=== PATIENT | female | born 1965 | race Asian ===

== ENCOUNTER 2018-09-24 13:15 | Day surgery (SDC) | payer OTHER ==
[~2018-09-24] VITALS: Ht 154.9 cm; Wt 56.4 kg
[2018-09-24] MEDS ORDERED: SIMVASTATIN (13:47)
[2018-09-24] MEDS ORDERED: VENLAFAXINE HCL (13:47)
[2018-09-24] MEDS ORDERED: BENAZEPRIL (13:47)
[2018-09-24] MEDS ORDERED: VITAMINS (13:47)
[2018-09-24 13:49] VITALS: Ht 154.9 cm; Wt 56.4 kg
[2018-09-24 14:59] VITALS: BP 128/84; PULSE 78; RESP 18
[2018-09-24] MEDS ORDERED: FENTAnyl 50 MCG/ML VIAL ONE (16:52)
[2018-09-24] MEDS ORDERED: MIDAZOLAM 1 MG/ML 2 ML INJ ONE ×2 (16:52)
[2018-09-24 16:56] VITALS: BP 130/81; PULSE 71; RESP 18
== END 2018-09-24 17:13 | disposition home or self-care (01) ==
LOC: GIL 13:15
PROVIDERS: ATTEND Internal Medicine Gastroenterology
DX: Z12.11 Encounter for screening for malignant neoplasm of colon (principal); K52.9 Noninfective gastroenteritis and colitis, unspecified; K64.8 Other hemorrhoids; K63.89 Other specified diseases of intestine
CPT/HCPCS: 45380; 88305; J2250; J3010; Z7610